=== PATIENT | male | born 1975 | race Caucasian/White ===

== ENCOUNTER 2024-06-10 12:17 | Inpatient (IN) | payer OTHER ==
[2024-06-10 12:40] VITALS: BMI 20.6
[2024-06-10] MEDS ORDERED: guaiFENesin 600 MG TABLET.ER (FP) PO PRN (12:48)
[2024-06-10] MEDS ORDERED: IBUPROFEN 400 MG TABLET (FP) PO PRN (12:48)
[2024-06-10] MEDS ORDERED: MAG HYDROX/AL HYDROX/SIMETH 30 ML UNIT-DOSE CUP PO PRN (12:48)
[2024-06-10] MEDS ORDERED: ACETAMINOPHEN 325 MG TABLET (FP) PO PRN (12:48)
[2024-06-10] MEDS ORDERED: POLYETHYLENE GLYCOL (HEALTHYLAX) 3350 17 GM PACKET PO PRN (12:48)
[2024-06-10] MEDS ORDERED: ONDANSETRON *ODT* 4 MG TABLET SL PRN (12:48)
[2024-06-10] MEDS ORDERED: MAGNESIUM HYDROX 2400MG/30ML ORAL SUSPENSION 30 ML CUP PO PRN (12:48)
[2024-06-10] MEDS ORDERED: NALOXONE (NARCAN) HCL 4 MG/0.1 ML SPRAY NS PRN (12:48)
[2024-06-10] MEDS ORDERED: BISMUTH SUBSALICYLATE 524 MG/30 ML PO PRN (12:48)
[2024-06-10] MEDS ORDERED: BENZONATATE 200 MG CAPSULE PO PRN (12:48)
[2024-06-10] MEDS ORDERED: DICYCLOMINE HCL 10 MG CAPSULE PO PRN (12:48)
[2024-06-10] MEDS ORDERED: LOPERAMIDE HCL 2 MG CAPSULE PO PRN (12:48)
[2024-06-10] MEDS ORDERED: BENZOCAINE/MENTHOL (CHLORASEPTIC ) LOZENGE MM PRN (12:48)
[2024-06-10] MEDS ORDERED: cloNIDine HCL 0.1 MG TABLET ONE (13:21)
[2024-06-10] MEDS ORDERED: PRENATAL VITAMINS W/ FOLIC ACID TABLET (FP) PO ONE (13:22)
[2024-06-10] MEDS ORDERED: methaDONE HCL 10 MG TABLET ONE (13:22)
[2024-06-10] MEDS: cloNIDine HCL 0.1 MG TABLET PO SCH (13:24)
[2024-06-10] MEDS: PRENATAL VITAMINS W/ FOLIC ACID TABLET (FP) PO SCH (13:24)
[2024-06-10] MEDS: methaDONE HCL 10 MG TABLET PO ONE (13:24)
[2024-06-10] MEDS: NICOTINE 14 MG/24 HOURS TOPICAL PATCH TD SCH (13:25)
[2024-06-10] MEDS ORDERED: methaDONE HCL 10 MG TABLET PO PRN (14:48)
[2024-06-10] MEDS: MELATONIN 5 MG TABLETS PO SCH (23:12)
[2024-06-10] MEDS: THIAMINE 100 MG TABLET PO SCH (23:12)
[2024-06-11] MEDS: methaDONE 40 MG, methaDONE 10 MG PO ONE (09:54)
[2024-06-11 12:51] LABS: HEMATOCRIT 44.3 % (35.4-49); HEMOGLOBIN 14.3 GM/dL (11.7-16.9); MCHC 32.2 g/dl (32.0-35.9); MEAN CELL VOLUME 86.9 fl (80-96); WHITE BLOOD COUNT 7.3 K/mm3 (4.0-10.0)
[2024-06-11 12:57] LABS: POTASSIUM 3.5 mmol/L (3.5-5.1)
[2024-06-11 13:02] LABS: CREATININE 0.6 mg/dL (0.55-1.3)
[2024-06-11 13:03] LABS: ALBUMIN 3.6 g/dl (3.4-5.0); CALCIUM 9.4 mg/dL (8.5-10.1)
[2024-06-11 13:04] LABS: BLOOD UREA NITROGEN 11.2 mg/dL (7-18)
[2024-06-11 13:08] LABS: TOT PROT 8.1 g/dl (6.4-8.2)
[2024-06-11 13:09] LABS: BILIRUBIN,TOTAL 0.7 mg/dL (0.2-1)
[2024-06-11] MEDS: METHOCARBAMOL 500 MG TABLET PO PRN (13:26)
[2024-06-11] MEDS: hydrOXYzine PAMOATE 25 MG CAPSULE (FP) PO PRN (13:26)
[2024-06-12] MEDS: cloNIDine HCL 0.1 MG TABLET PO PRN (07:52)
[2024-06-12] MEDS: methaDONE 40 MG, methaDONE 20 MG PO ONE (09:38)
[2024-06-12] MEDS: IBUPROFEN 600 MG TABLET (FP) PO PRN (17:19)
[2024-06-13] MEDS: methaDONE 40 MG, methaDONE 30 MG PO ONE (09:05)
[2024-06-14] MEDS: methaDONE HCL 40 MG DISPERSABLE TABLET PO ONE (09:24)
[2024-06-14 14:09] LABS: GLUCOSE,FASTING 100 mg/dL (74-106)
[2024-06-14 14:12] LABS: SGOT/AST 67 U/L (15-37); SGPT/ALT 104 U/L (13-61)
[2024-06-14 14:18] LABS: HEMATOCRIT 43.7 % (35.4-49); HEMOGLOBIN 14.1 GM/dL (11.7-16.9); MCHC 32.3 g/dl (32.0-35.9); MEAN CELL VOLUME 86.7 fl (80-96); RBC 5.04 M/mm3 (4.00-5.60); RDW 15.1 % (11.9-15.9); WHITE BLOOD COUNT 8.4 K/mm3 (4.0-10.0)
[2024-06-14] MEDS: NALOXONE (NYS OPIOID OVERDOSE PROGRAM) 4 MG/0.1 ML SPRAY NS SCH (14:23)
[2024-06-14 14:49] LABS: ANISOCYTOSIS 0; MACROCYTOSIS 0
[2024-06-15] MEDS: methaDONE 80 MG, methaDONE 10 MG PO ONE (09:21)
[2024-06-15] MEDS: NALOXONE (NYS OPIOID OVERDOSE PROGRAM) 4 MG/0.1 ML SPRAY NS SCH (11:59)
[2024-06-15 17:35] VITALS: RESP 18
[2024-06-15 20:42] VITALS: BP 146/80; PULSE 70; TEMP 97.8
== END 2024-06-16 10:52 | disposition home or self-care (01) | DRG 773 ==
LOC: YASAS 12:17 → Y6N 13:34
PROVIDERS: ADMIT Allergy & Immunology; ATTEND Surgery
PROC: HZ2ZZZZ Detoxification Services for Substance Abuse Treatment (ICD-10-PCS; principal; 2024-06-10)
DX: F11.23 Opioid dependence with withdrawal (principal); F17.210 Nicotine dependence, cigarettes, uncomplicated; F32.A Depression, unspecified; K40.90 Unilateral inguinal hernia, without obstruction or gangrene, not specified as recurrent; R73.9 Hyperglycemia, unspecified; R74.01 Elevation of levels of liver transaminase levels
CPT/HCPCS: 36415; 80053; 82947; 83036; 84450; 84460; 85025; 85027; 86780; 93005; 93010